=== PATIENT | male | born 1970 | race Caucasian/White ===

== ENCOUNTER 2016-07-28 10:59 | Emergency (ER) | payer BC ==
--- NOTE | 2016-07-28 12:51 | ED NURSING NOTES ---
Clinical Report - Nurses [facility] [place] [address] 07/28/2016 11:03 Patient: TRENT ABEL TRIAGE Triage time 11:33. Acuity: LEVEL 4. Chief Complaint: SINUS CONGESTION and SINUS DRAINAGE (Swollen Uvula). 11:41 07/28/16. SEPSIS SCREEN: Sepsis Screen. Negative (no infection suspected/documented). IRLANDA COMA SCORE: Irlanda Coma Scale: 15- eyes open spontaneously (4); best verbal response- oriented x 4 (5); best motor response- obeys commands (6). --11:41 Thuan Martin R.N. 11:34 07/28/16. BP: 130/94. HR: 92. RR: 16. O2 saturation: 97% on room air. Temp: 98.6 F (oral). Pain level now: 5/10. --11:41 Thuan Martin R.N. Weight: 104.3 kg stated. Height/Length: 71 inches Per Patient. BMI: 32.1. --11:37 Thuan Martin R.N. Medications Naproxen Oral, as needed. --11:36 Thuan Martin R.N. Medication/allergy information source: the patient and patient's spouse. --11:41 Thuan Martin R.N. Allergies Penicillins. --11:36 Thuan Martin R.N. History Arrived by private vehicle. Historian: patient and family. This started last night. ( The same thing happened in 2012 and he was seen here.). 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 SOCIAL HX: Never smoker. Occasional alcohol use. No drug use. ABUSE ASSESSMENT: No report of abuse. --11:41 Thuan Martin R.N. PROBLEMS: Viral Disease. Angioedema. Immunizations. --11:36 Thuan Martin R.N. ADDITIONAL SURGERIES: Back Surgery. --11:36 Thuan Martin R.N. Interventions ID band on patient. To treatment room. --11:41 Thuan Martin R.N. PHYSICAL ASSESSMENT 11:46 07/28/16. Ambulatory to room. GENERAL / NEURO / PSYCH: Alert. Appears in no acute distress. HEENT: No facial asymmetry noted. Pupils equal, round and reactive to light. EOM intact. ( Significantly swollen uvula, drainage noted.). RESPIRATORY: Respirations not labored. CVS: Capillary refill less than 2 seconds. SKIN: Skin is warm and dry. --11:46 Thuan Martin R.N. NURSING PROGRESS NOTES 11:46 07/28/16. Patient gowned. Reassurance given. Two patient identifiers checked. Call light placed in reach. Bed placed in lowest position. Brakes of bed on. Patient ready for evaluation- chart flagged. --11:46 Thuan Martin R.N. 12:57 07/28/2016 Decadron (Dexamethasone Sodium Phosphate) IM 8 mg given. Given in the right deltoid. Allergies verified and confirmed 5 rights. --13: Thuan Martin R.N. 12:57 07/28/2016 Benadryl (DiphenhydrAMINE HCl) IM 50 mg given. Given in the left deltoid. Allergies verified, confirmed 5 rights and sedative warning given to the patient. --13: Thuan Martin R.N. 12:58 07/28/16. BP: 136/90. HR: 76. RR: 16. O2 saturation: 95% on room air. Pain level now: 11/28. --13:07 Thuan Martin R.N. DISPOSITION / DISCHARGE 13:10 07/28/16. BP: 128/88. HR: 84 (regular). RR: 16. O2 saturation: 97%. Temp: 98.7 F. Pain level now: 09/28. --21:31 Lauro Reed R.N. Departure time: 1315. --21:31 Lauro Reed R.N. 13:15. Condition at departure: improved. No learning barriers present. Discharge instructions provided and reviewed with the patient. Reviewed medication(s) (prescription given to pt). Reviewed referral to family practice for followup. Patient verbalized understanding. Written instructions provided in Thai. The patient was discharged by the physician. He was discharged home. He left the Emergency Department ambulatory and via private vehicle. Patient driving. --21:35 Lauro Reed R.N. Locked/Released at 07/28/2016 21:35 by Lauro Reed R.N.
--- NOTE | 2016-07-28 12:51 | ED NURSING NOTES ---
Clinical Report - Nurses [facility] [place] [address] 07/28/2016 11:03 Patient: TRENT ABEL TRIAGE Triage time 11:33. Acuity: LEVEL 4. Chief Complaint: SINUS CONGESTION and SINUS DRAINAGE (Swollen Uvula). 11:41 07/28/16. SEPSIS SCREEN: Sepsis Screen. Negative (no infection suspected/documented). IRLANDA COMA SCORE: Irlanda Coma Scale: 15- eyes open spontaneously (4); best verbal response- oriented x 4 (5); best motor response- obeys commands (6). --11:41 Thuan Martin R.N. 11:34 07/28/16. BP: 130/94. HR: 92. RR: 16. O2 saturation: 97% on room air. Temp: 98.6 F (oral). Pain level now: 5/10. --11:41 Thuan Martin R.N. Weight: 104.3 kg stated. Height/Length: 71 inches Per Patient. BMI: 32.1. --11:37 Thuan Martin R.N. Medications Naproxen Oral, as needed. --11:36 Thuan Martin R.N. Medication/allergy information source: the patient and patient's spouse. --11:41 Thuan Martin R.N. Allergies Penicillins. --11:36 Thuan Martin R.N. History Arrived by private vehicle. Historian: patient and family. This started last night. ( The same thing happened in 2012 and he was seen here.). 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 SOCIAL HX: Never smoker. Occasional alcohol use. No drug use. ABUSE ASSESSMENT: No report of abuse. --11:41 Thuan Martin R.N. PROBLEMS: Viral Disease. Angioedema. Immunizations. --11:36 Thuan Martin R.N. ADDITIONAL SURGERIES: Back Surgery. --11:36 Thuan Martin R.N. Interventions ID band on patient. To treatment room. --11:41 Thuan Martin R.N. PHYSICAL ASSESSMENT 11:46 07/28/16. Ambulatory to room. GENERAL / NEURO / PSYCH: Alert. Appears in no acute distress. HEENT: No facial asymmetry noted. Pupils equal, round and reactive to light. EOM intact. ( Significantly swollen uvula, drainage noted.). RESPIRATORY: Respirations not labored. CVS: Capillary refill less than 2 seconds. SKIN: Skin is warm and dry. --11:46 Thuan Martin R.N. NURSING PROGRESS NOTES 11:46 07/28/16. Patient gowned. Reassurance given. Two patient identifiers checked. Call light placed in reach. Bed placed in lowest position. Brakes of bed on. Patient ready for evaluation- chart flagged. --11:46 Thuan Martin R.N. 12:57 07/28/2016 Decadron (Dexamethasone Sodium Phosphate) IM 8 mg given. Given in the right deltoid. Allergies verified and confirmed 5 rights. --13: Thuan Martin R.N. 12:57 07/28/2016 Benadryl (DiphenhydrAMINE HCl) IM 50 mg given. Given in the left deltoid. Allergies verified, confirmed 5 rights and sedative warning given to the patient. --13: Thuan Martin R.N. 12:58 07/28/16. BP: 136/90. HR: 76. RR: 16. O2 saturation: 95% on room air. Pain level now: 11/28. --13:07 Thuan Martin R.N. DISPOSITION / DISCHARGE 13:10 07/28/16. BP: 128/88. HR: 84 (regular). RR: 16. O2 saturation: 97%. Temp: 98.7 F. Pain level now: 09/28. --21:31 Lauro Reed R.N. Departure time: 1315. --21:31 Lauro Reed R.N. 13:15. Condition at departure: improved. No learning barriers present. Discharge instructions provided and reviewed with the patient. Reviewed medication(s) (prescription given to pt). Reviewed referral to family practice for followup. Patient verbalized understanding. Written instructions provided in Vietnamese. The patient was discharged by the physician. He was discharged home. He left the Emergency Department ambulatory and via private vehicle. Patient driving. --21:35 Lauro Reed R.N. Locked/Released at 07/28/2016 21:35 by Lauro Reed R.N.
--- NOTE | 2016-07-28 12:51 | ED CLINICAL REPORT ---
Clinical Report - Physicians/Mid Levels [facility] [address] [place] [address] 07/28/2016 11:03 Patient: TRENT ABEL Time Seen: 1220; initial patient contact, initial documentation, patient care assumed. Arrived- By private vehicle. Historian- patient and spouse. HISTORY OF PRESENT ILLNESS Chief Complaint: throat swelling. This started last night and is still present. Pain described as mild. The patient has had a sore throat, nasal congestion and a nasal discharge. No mouth sores or ear pain. (c/o sinus drainage). Similar symptoms previously: Once, milder. Recent medical care: Not recently seen/assessed. REVIEW OF SYSTEMS No fever, cough or difficulty breathing. All systems otherwise negative, except as recorded above. PAST HISTORY See nurses notes. PROBLEMS: Viral Disease. Angioedema. Immunizations. --11:36 Thuan Martin R.N. ADDITIONAL SURGERIES: Back Surgery. --11:36 Thuan Martin R.N. SOCIAL HISTORY Never smoker. Occasional alcohol use. No drug use. No recent travel. Is a local resident. FAMILY HISTORY Negative. ADDITIONAL NOTES The nursing notes have been reviewed with agreement regarding the chief complaint, HPI, ROS, PMH and patient medications and allergies. PHYSICAL EXAM Vital Signs: 07/28/2016 11:34 BP: 130/94. HR: 92. RR: 16. O2 saturation: 97%. Temp: 98.6 F. Pain level now: 5/10. Have been reviewed as normal and appear to be correct. Appearance: Alert. No acute distress. Head: Normal external inspection. Eyes: Pupils equal, round and reactive to light. Conjunctivae and eyelids normal. ENT: Ears normal. Nose normal. Pharynx abnormal. Lips normal. Gums normal. No trismus present. Uvula midline. (uvula swelling). Neck: Normal inspection. Trachea midline. No adenopathy. Thyroid normal. Neck supple. CVS: Normal heart rate and rhythm. Heart sounds normal. Pulses normal. Respiratory: No respiratory distress. Breath sounds normal. Chest nontender. Skin: Normal skin color. No rash. Normal skin turgor. Extremities: Extremities exhibit normal ROM. Extremities nontender. Neuro: Oriented X 3. No motor deficit. No sensory deficit. PROGRESS AND PROCEDURES Patient and spouse counseled in person regarding the patient's stable condition and diagnosis. 12:51. Differential Diagnosis: Other possible considerations: uvulitis, sinusitis, allergic reaction, flu, viral illness, pharyngitis. Above considerations are based on history and physical exam. Differential diagnosis was discussed with patient and patient's spouse. Disposition: Discharged home in good and improved condition (12:51). Condition: good and stable. CLINICAL IMPRESSION Acute sinusitis (Uvulitis). INSTRUCTIONS Drink plenty of fluids for the next 24 hours until better. (over the saline sinus wash). Warnings: GENERAL WARNINGS: Return or contact your physician immediately if your condition worsens or changes unexpectedly, if not improving as expected, or if other problems arise. Specifically return if problem worsens. Prescription Medications: Prednisone 20 mg: take 3 orally every day for 5 days. Dispense fifteen (15). No refills. Zithromax 500 mg tablets: take 1 orally today, every day. Total course 7 days. No refills. Vashti 180 mg tablets: take 1 orally daily for 10 days. Dispense ten (10). No refills. Follow-up: Follow up with your doctor tomorrow in about three days even if well. Call for an appointment. Summary of care provided to patient. Understanding of the discharge instructions verbalized by patient. (Electronically signed by Shani Sommer A.R.N.P. 07/28/2016 13:53)
--- NOTE | 2016-07-28 12:52 | ED ORDER SUMMARY ---
..... Patient: TRENT ABEL OrderSheet [facility] VisitID: [id number] [address] [place] [address] 46y, M Registration Date/Time: 07/28/2016 ORDER SHEET Weight: 104.3 kg (stated) Allergies: Penicillins GENERAL ORDERS: MEDICATION ORDERS: Decadron IM 8 mg (NOW) (12:32 07/28/2016 HBivens A.R.N.P.) (Ack 12:51 JSimbeck R.N.) (13:01 JSimbeck R.N.) Benadryl IM 50 mg (NOW) (12:49 07/28/2016 HBivens A.R.N.P.) (Ack 12:51 JSimbeck R.N.) (13:01 JSimbeck R.N.) IV FLUIDS: ORDER SHEET NOTES: [Electronically signed by Shani SommerR.N.P. (13:53 07/28/2016)] [Electronically signed by Lauro Reed R.N. (21:35 07/28/2016)] [Electronically locked/signed by Lauro Reed R.N. (21:35 07/28/2016)]
--- NOTE | 2016-07-28 12:52 | ED ORDER SUMMARY ---
..... Patient: TRENT ABEL OrderSheet [facility] VisitID: [id number] [address] [place] [address] 46y, M Registration Date/Time: 07/28/2016 ORDER SHEET Weight: 104.3 kg (stated) Allergies: Penicillins GENERAL ORDERS: MEDICATION ORDERS: Decadron IM 8 mg (NOW) (12:32 07/28/2016 HBivens A.R.N.P.) (Ack 12:51 JSimbeck R.N.) (13:01 JSimbeck R.N.) Benadryl IM 50 mg (NOW) (12:49 07/28/2016 HBivens A.R.N.P.) (Ack 12:51 JSimbeck R.N.) (13:01 JSimbeck R.N.) IV FLUIDS: ORDER SHEET NOTES: [Electronically signed by Shani SommerR.N.P. (13:53 07/28/2016)] [Electronically signed by Lauro Reed R.N. (21:35 07/28/2016)] [Electronically locked/signed by Lauro Reed R.N. (21:35 07/28/2016)]
--- NOTE | 2016-07-28 21:35 | ED MAR SUMMARY ---
..... Medication Administration Record [facility] [address] [place] [address] Patient: TRENT ABEL Visit ID: [id number] 46y, M Weight: 104.3 kg Height/Length: 71 in BMI: 32.1 ALLERGIES: Penicillins Given 12:57 07/28/2016 Thuan Martin R.N. Medication Administered: DECADRON [IM] (DEXAMETHASONE SODIUM PHOSPHATE), Dose: 8 mg IM. Medication Ordered: Decadron IM 8 mg (NOW). Given 12:57 07/28/2016 Thuan Martin R.N. Medication Administered: BENADRYL [IM] (DIPHENHYDRAMINE HCL), Dose: 50 mg IM. Medication Ordered: Benadryl IM 50 mg (NOW).
--- NOTE | 2016-07-28 21:35 | ED MAR SUMMARY ---
..... Medication Administration Record [facility] [address] [place] [address] Patient: TRENT ABEL Visit ID: [id number] 46y, M Weight: 104.3 kg Height/Length: 71 in BMI: 32.1 ALLERGIES: Penicillins Given 12:57 07/28/2016 Thuan Martin R.N. Medication Administered: DECADRON [IM] (DEXAMETHASONE SODIUM PHOSPHATE), Dose: 8 mg IM. Medication Ordered: Decadron IM 8 mg (NOW). Given 12:57 07/28/2016 Thuan Martin R.N. Medication Administered: BENADRYL [IM] (DIPHENHYDRAMINE HCL), Dose: 50 mg IM. Medication Ordered: Benadryl IM 50 mg (NOW).
--- NOTE | 2016-07-28 21:35 | ED MED RECONCILIATION SUMMARY ---
Patient: TRENT ABEL Medication Reconciliation Report [facility] VisitID: [id number] [address] [place] [address] 46y, M Registration Date/Time: 07/28/2016 Weight: 104.3 kg Height/Length: 71 in. BMI: 32.1 ALLERGIES: Penicillins The patient's Home Medications are listed below: THE FOLLOWING MEDICATIONS NEED TO BE RECONCILED: Naproxen Oral The source(s) of the original Home Medication information: patient patient's spouse The following Medications were given to the patient in the Emergency Department: Decadron [IM] IM 8 mg, administered: 07/28/2016 12:57:00 PM Benadryl [IM] IM 50 mg, administered: 07/28/2016 12:57:00 PM The following Medications were prescribed to the patient: Prednisone 20 mg: take 3 orally every day for 5 days. Dispense fifteen (15). No refills. -- Shani Sommer A.R.NFreddyP. Zithromax 500 mg tablets: take 1 orally today, every day. Total course 7 days. No refills. -- Shani Sommer A.R.NFreddyP. Vashti 180 mg tablets: take 1 orally daily for 10 days. Dispense ten (10). No refills. -- Shani Sommer A.R.NFreddyP.
--- NOTE | 2016-07-28 21:35 | ED DISCHARGE INSTRUCTIONS ---
Patient: TRENT ABEL General Instructions [facility] VisitID: [id number] [address] [place] [address] 46y, M Registration Date/Time: 07/28/2016 Acute sinusitis (Uvulitis). INSTRUCTIONS Drink plenty of fluids for the next 24 hours until better. (over the saline sinus wash). Warnings: GENERAL WARNINGS: Return or contact your physician immediately if your condition worsens or changes unexpectedly, if not improving as expected, or if other problems arise. Specifically return if problem worsens. Prescription Medications: Prednisone 20 mg: take 3 orally every day for 5 days. Dispense fifteen (15). No refills. Zithromax 500 mg tablets: take 1 orally today, every day. Total course 7 days. No refills. Vashti 180 mg tablets: take 1 orally daily for 10 days. Dispense ten (10). No refills. Follow-up: Follow up with your doctor tomorrow in about three days even if well. Call for an appointment. Summary of care provided to patient. Understanding of the discharge instructions verbalized by patient. ADDITIONAL INFORMATION Sinusitis [Abx Tx] The sinuses are air-filled spaces within the bones of the face. They connect to the inside of the nose. Sinusitis is an inflammation of the tissue lining the sinus cavity. Sinus inflammation can occur during a cold or hay-fever (allergies to pollens and other particles in the air) and cause symptoms of sinus congestion and fullness. A sinus infection causes fever, headache and facial pain. There is usually green or yellow drainage from the nose or into the back of the throat (post-nasal drip). Antibiotics are prescribed to treat this condition. Home Care: Drink plenty of water, hot tea, and other liquids to stay well hydrated. This thins the mucus and promotes sinus drainage. Apply heat to the painful areas of the face. Use a towel soaked in hot water. Or, die sinking machine operator the shower and direct the hot spray onto your face. This is a good way to inhale warm water vapor and get heat on your face at the same time. (Cover your mouth and nose with your hands so you can still breathe as you do this.) Use a vaporizer with products such as [employer] VapoRub (contains menthol) at night. Suck on peppermint, menthol or eucalyptus hard candies during the day. An expectorant containing guaifenesin (such as Robitussin), helps to thin the mucus and promote drainage from the sinuses. Yxmz-nir-dipiodg decongestants may be used unless a similar medicine was prescribed. Nasal sprays work the fastest. Use one that contains phenylephrine (Juan Luis-synephrine, Sinex and others) or oxymetazoline (Afrin). First blow the nose gently to remove mucus, then apply the drops. Do not use these medicines more often than directed on the label or for more than three days or symptoms may worsen. You may also use tablets containing pseudoephedrine (Sudafed). Many sinus remedies combine ingredients, which may increase side effects. Read the labels or ask the pharmacist for help. NOTE: Persons with high blood pressure should not use decongestants. They can raise blood pressure. Antihistamines are useful if allergies are a cause of your sinusitis. The mildest one is chlorpheniramine (available without a prescription). The dose for adults is 8-12mg three times a day. [NOTE: Do not use chlorpheniramine if you have glaucoma or if you are a man with trouble urinating due to an enlarged prostate.] Claritin (loratidine) is an antihistamine that causes less drowsiness and is a good alternative for daytime use. Do not use nasal rinses or irrigation during an acute sinus infection, unless advised by your doctor. Rinsing may spread the infection to other sinuses. You may use acetaminophen (Tylenol) or ibuprofen (Motrin, Advil) to control pain, unless another pain medicine was prescribed. [ NOTE: If you have chronic liver or kidney disease or ever had a stomach ulcer, talk with your doctor before using these medicines.] (Aspirin should never be used in anyone under 18 years of age who is ill with a fever. It may cause severe liver damage.) Finish the full course, even if you are feeling better after a few days. Follow Up with your doctor or this facility in one week or as instructed by our staff if not improving. Get Prompt Medical Attention if any of the following occur: Facial pain or headache becomes more severe Stiff neck Unusual drowsiness or confusion, or not acting like your normal self Swelling of the forehead or eyelids Vision problems including blurred or double vision Fever of 100.4F (38C) or higher, or as directed by your healthcare provider Seizure Prednisone Oral tablet What is this medicine? PREDNISONE (PRED ni sone) is a corticosteroid. It is commonly used to treat inflammation of the skin, joints, lungs, and other organs. Common conditions treated include asthma, allergies, and arthritis. It is also used for other conditions, such as blood disorders and diseases of the adrenal glands. How should I use this medicine? Take this medicine by mouth with a glass of water. Follow the directions on the prescription label. Take this medicine with food. If you are taking this medicine once a day, take it in the morning. Do not take more medicine than you are told to take. Do not suddenly stop taking your medicine because you may develop a severe reaction. Your doctor will tell you how much medicine to take. If your doctor wants you to stop the medicine, the dose may be slowly lowered over time to avoid any side effects. Talk to your senior benefits manager regarding the use of this medicine in children. Special care may be needed. What side effects may I notice from receiving this medicine? Side effects that you should report to your doctor or health health care specialist as soon as possible: allergic reactions like skin rash, itching or hives, swelling of the face, lips, or tongue changes in emotions or moods changes in vision depressed mood eye pain fever or chills, cough, sore throat, pain or difficulty passing urine increased thirst swelling of ankles, feet Side effects that usually do not require medical attention (report to your doctor or health health care specialist if they continue or are bothersome): confusion, excitement, restlessness headache nausea, vomiting skin problems, acne, thin and shiny skin trouble sleeping weight gain What may interact with this medicine? Do not take this medicine with any of the following medications: metyrapone mifepristone This medicine may also interact with the following medications: aminoglutethimide amphotericin B aspirin and aspirin-like medicines barbiturates certain medicines for diabetes, like glipizide or glyburide cholestyramine cholinesterase inhibitors cyclosporine digoxin diuretics ephedrine female hormones, like estrogens and control pills isoniazid ketoconazole NSAIDS, medicines for pain and inflammation, like ibuprofen or naproxen phenytoin rifampin toxoids vaccines warfarin What if I miss a dose? If you miss a dose, take it as soon as you can. If it is almost time for your next dose, talk to your doctor or health health care specialist. You may need to miss a dose or take an extra dose. Do not take double or extra doses without advice. Where should I keep my medicine? Keep out of the reach of children. Store at room temperature between 15 and 30 degrees C (59 and 86 degrees F). Protect from light. Keep container tightly closed. Throw away any unused medicine after the expiration date. What should I tell my health care provider before I take this medicine? They need to know if you have any of these conditions: Proctor's syndrome diabetes glaucoma heart disease high blood pressure infection (especially a virus infection such as chickenpox, cold sores, or herpes) kidney disease liver disease mental illness myasthenia gravis osteoporosis seizures stomach or intestine problems thyroid disease an unusual or allergic reaction to lactose, prednisone, other medicines, foods, dyes, or preservatives or trying to get breast-feeding What should I watch for while using this medicine? Visit your doctor or health health care specialist for regular checks on your progress. If you are taking this medicine over a prolonged period, carry an identification card with your name and address, the type and dose of your medicine, and your doctor's name and address. This medicine may increase your risk of getting an infection. Tell your doctor or health health care specialist if you are around anyone with measles or chickenpox, or if you develop sores or blisters that do not heal properly. If you are going to have surgery, tell your doctor or health health care specialist that you have taken this medicine within the last twelve months. Ask your doctor or health health care specialist about your diet. You may need to lower the amount of salt you eat. This medicine may affect blood sugar levels. If you have diabetes, check with your doctor or health health care specialist before you change your diet or the dose of your diabetic medicine. Azithromycin Oral tablet What is this medicine? AZITHROMYCIN (az ith hunter MYE sin) is a macrolide antibiotic. It is used to treat or prevent certain kinds of bacterial infections. It will not work for colds, flu, or other viral infections. How should I use this medicine? Take this medicine by mouth with a full glass of water. Follow the directions on the prescription label. The tablets can be taken with food or on an empty stomach. If the medicine upsets your stomach, take it with food. Take your medicine at regular intervals. Do not take your medicine more often than directed. Take all of your medicine as directed even if you think your are better. Do not skip doses or stop your medicine early. Talk to your senior benefits manager regarding the use of this medicine in children. Special care may be needed. What side effects may I notice from receiving this medicine? Side effects that you should report to your doctor or health health care specialist as soon as possible: allergic reactions like skin rash, itching or hives, swelling of the face, lips, or tongue confusion, nightmares or hallucinations dark urine difficulty breathing hearing loss irregular heartbeat or chest pain pain or difficulty passing urine redness, blistering, peeling or loosening of the skin, including inside the mouth white patches or sores in the mouth yellowing of the eyes or skin Side effects that usually do not require medical attention (report to your doctor or health health care specialist if they continue or are bothersome): diarrhea dizziness, drowsiness headache stomach upset or vomiting tooth discoloration vaginal irritation What may interact with this medicine? Do not take this medicine with any of the following medications: lincomycin This medicine may also interact with the following medications: amiodarone antacids cyclosporine digoxin magnesium nelfinavir phenytoin warfarin What if I miss a dose? If you miss a dose, take it as soon as you can. If it is almost time for your next dose, take only that dose. Do not take double or extra doses. Where should I keep my medicine? Keep out of the reach of children. Store at room temperature between 15 and 30 degrees C (59 and 86 degrees F). Throw away any unused medicine after the expiration date. What should I tell my health care provider before I take this medicine? They need to know if you have any of these conditions: kidney disease liver disease irregular heartbeat or heart disease an unusual or allergic reaction to azithromycin, erythromycin, other macrolide antibiotics, foods, dyes, or preservatives or trying to get breast-feeding What should I watch for while using this medicine? Tell your doctor or health health care specialist if your symptoms do not improve. Do not treat diarrhea with over the counter products. Contact your doctor if you have diarrhea that lasts more than 2 days or if it is severe and watery. This medicine can make you more sensitive to the sun. Keep out of the sun. If you cannot avoid being in the sun, wear protective clothing and use sunscreen. Do not use sun lamps or tanning beds/booths. Fexofenadine Hydrochloride Oral tablet What is this medicine? FEXOFENADINE (fex oh CARLOS cordero) is an antihistamine. This medicine is used to treat or prevent symptoms of allergies. It is also used to help reduce itchy skin rash and hives. How should I use this medicine? Take this medicine by mouth with a full glass of water. Follow the directions on the prescription label. You may take this medicine with food or on an empty stomach. Take your medicine at regular intervals. Do not take it more often than directed. You may need to take this medicine for several days before your symptoms improve. Talk to your senior benefits manager regarding the use of this medicine in children. While this drug may be prescribed for children as young as 6 years old for selected conditions, precautions do apply. What side effects may I notice from receiving this medicine? Side effects that you should report to your doctor or health health care specialist as soon as possible: allergic reactions like skin rash, itching or hives, swelling of the face, lips, or tongue breathing problems chest pain fast heartbeat infection or fever Side effects that usually do not require medical attention (report to your doctor or health health care specialist if they continue or are bothersome): cough drowsiness dry or irritated nose, mouth, or throat headache menstrual changes pain stomach upset, nausea What may interact with this medicine? antacids erythromycin grapefruit, apple, or orange juice ketoconazole magnesium-containing products What if I miss a dose? If you miss a dose, take it as soon as you can. If it is almost time for your next dose, take only that dose. Do not take double or extra doses. Where should I keep my medicine? Keep out of the reach of children. Store at room temperature between 20 and 25 degrees C (68 and 77degrees F). Protect from moisture. Throw away any unused medicine after the expiration date. What should I tell my health care provider before I take this medicine? They need to know if you have any of these conditions: kidney disease an unusual or allergic reaction to fexofenadine, terfenadine, other medicines, foods, dyes, or preservatives or trying to get breast-feeding What should I watch for while using this medicine? Visit your doctor or health health care specialist for regular checks on your health. Tell your doctor or healthcare professional if your symptoms do not start to get better or if they get worse. You have been given the following additional information: Sinusitis, Abx Tx Prednisone Oral tablet Azithromycin Oral tablet Fexofenadine Hydrochloride Oral tablet (Electronically signed by Shani Sommer A.R.N.P. 07/28/2016 13:53)
--- NOTE | 2016-07-28 21:35 | ED DISCHARGE INSTRUCTIONS ---
Patient: TRENT ABEL General Instructions [facility] VisitID: [id number] [place] [address] 46y, M Registration Date/Time: 07/28/2016 Acute sinusitis (Uvulitis). INSTRUCTIONS Drink plenty of fluids for the next 24 hours until better. (over the saline sinus wash). Warnings: GENERAL WARNINGS: Return or contact your physician immediately if your condition worsens or changes unexpectedly, if not improving as expected, or if other problems arise. Specifically return if problem worsens. Prescription Medications: Prednisone 20 mg: take 3 orally every day for 5 days. Dispense fifteen (15). No refills. Zithromax 500 mg tablets: take 1 orally today, every day. Total course 7 days. No refills. Vashti 180 mg tablets: take 1 orally daily for 10 days. Dispense ten (10). No refills. Follow-up: Follow up with your doctor tomorrow in about three days even if well. Call for an appointment. Summary of care provided to patient. Understanding of the discharge instructions verbalized by patient. ADDITIONAL INFORMATION Sinusitis [Abx Tx] The sinuses are air-filled spaces within the bones of the face. They connect to the inside of the nose. Sinusitis is an inflammation of the tissue lining the sinus cavity. Sinus inflammation can occur during a cold or hay-fever (allergies to pollens and other particles in the air) and cause symptoms of sinus congestion and fullness. A sinus infection causes fever, headache and facial pain. There is usually green or yellow drainage from the nose or into the back of the throat (post-nasal drip). Antibiotics are prescribed to treat this condition. Home Care: Drink plenty of water, hot tea, and other liquids to stay well hydrated. This thins the mucus and promotes sinus drainage. Apply heat to the painful areas of the face. Use a towel soaked in hot water. Or, veterans' coordinator the shower and direct the hot spray onto your face. This is a good way to inhale warm water vapor and get heat on your face at the same time. (Cover your mouth and nose with your hands so you can still breathe as you do this.) Use a vaporizer with products such as [employer] VapoRub (contains menthol) at night. Suck on peppermint, menthol or eucalyptus hard candies during the day. An expectorant containing guaifenesin (such as Robitussin), helps to thin the mucus and promote drainage from the sinuses. Gxdj-cau-cydblty decongestants may be used unless a similar medicine was prescribed. Nasal sprays work the fastest. Use one that contains phenylephrine (Juan Luis-synephrine, Sinex and others) or oxymetazoline (Afrin). First blow the nose gently to remove mucus, then apply the drops. Do not use these medicines more often than directed on the label or for more than three days or symptoms may worsen. You may also use tablets containing pseudoephedrine (Sudafed). Many sinus remedies combine ingredients, which may increase side effects. Read the labels or ask the pharmacist for help. NOTE: Persons with high blood pressure should not use decongestants. They can raise blood pressure. Antihistamines are useful if allergies are a cause of your sinusitis. The mildest one is chlorpheniramine (available without a prescription). The dose for adults is 8-12mg three times a day. [NOTE: Do not use chlorpheniramine if you have glaucoma or if you are a man with trouble urinating due to an enlarged prostate.] Claritin (loratidine) is an antihistamine that causes less drowsiness and is a good alternative for daytime use. Do not use nasal rinses or irrigation during an acute sinus infection, unless advised by your doctor. Rinsing may spread the infection to other sinuses. You may use acetaminophen (Tylenol) or ibuprofen (Motrin, Advil) to control pain, unless another pain medicine was prescribed. [ NOTE: If you have chronic liver or kidney disease or ever had a stomach ulcer, talk with your doctor before using these medicines.] (Aspirin should never be used in anyone under 18 years of age who is ill with a fever. It may cause severe liver damage.) Finish the full course, even if you are feeling better after a few days. Follow Up with your doctor or this facility in one week or as instructed by our staff if not improving. Get Prompt Medical Attention if any of the following occur: Facial pain or headache becomes more severe Stiff neck Unusual drowsiness or confusion, or not acting like your normal self Swelling of the forehead or eyelids Vision problems including blurred or double vision Fever of 100.4F (38C) or higher, or as directed by your healthcare provider Seizure Prednisone Oral tablet What is this medicine? PREDNISONE (PRED ni sone) is a corticosteroid. It is commonly used to treat inflammation of the skin, joints, lungs, and other organs. Common conditions treated include asthma, allergies, and arthritis. It is also used for other conditions, such as blood disorders and diseases of the adrenal glands. How should I use this medicine? Take this medicine by mouth with a glass of water. Follow the directions on the prescription label. Take this medicine with food. If you are taking this medicine once a day, take it in the morning. Do not take more medicine than you are told to take. Do not suddenly stop taking your medicine because you may develop a severe reaction. Your doctor will tell you how much medicine to take. If your doctor wants you to stop the medicine, the dose may be slowly lowered over time to avoid any side effects. Talk to your digital hardware design engineer regarding the use of this medicine in children. Special care may be needed. What side effects may I notice from receiving this medicine? Side effects that you should report to your doctor or health property caretaker as soon as possible: allergic reactions like skin rash, itching or hives, swelling of the face, lips, or tongue changes in emotions or moods changes in vision depressed mood eye pain fever or chills, cough, sore throat, pain or difficulty passing urine increased thirst swelling of ankles, feet Side effects that usually do not require medical attention (report to your doctor or health property caretaker if they continue or are bothersome): confusion, excitement, restlessness headache nausea, vomiting skin problems, acne, thin and shiny skin trouble sleeping weight gain What may interact with this medicine? Do not take this medicine with any of the following medications: metyrapone mifepristone This medicine may also interact with the following medications: aminoglutethimide amphotericin B aspirin and aspirin-like medicines barbiturates certain medicines for diabetes, like glipizide or glyburide cholestyramine cholinesterase inhibitors cyclosporine digoxin diuretics ephedrine female hormones, like estrogens and control pills isoniazid ketoconazole NSAIDS, medicines for pain and inflammation, like ibuprofen or naproxen phenytoin rifampin toxoids vaccines warfarin What if I miss a dose? If you miss a dose, take it as soon as you can. If it is almost time for your next dose, talk to your doctor or health property caretaker. You may need to miss a dose or take an extra dose. Do not take double or extra doses without advice. Where should I keep my medicine? Keep out of the reach of children. Store at room temperature between 15 and 30 degrees C (59 and 86 degrees F). Protect from light. Keep container tightly closed. Throw away any unused medicine after the expiration date. What should I tell my health care provider before I take this medicine? They need to know if you have any of these conditions: [place]'s syndrome diabetes glaucoma heart disease high blood pressure infection (especially a virus infection such as chickenpox, cold sores, or herpes) kidney disease liver disease mental illness myasthenia gravis osteoporosis seizures stomach or intestine problems thyroid disease an unusual or allergic reaction to lactose, prednisone, other medicines, foods, dyes, or preservatives or trying to get breast-feeding What should I watch for while using this medicine? Visit your doctor or health property caretaker for regular checks on your progress. If you are taking this medicine over a prolonged period, carry an identification card with your name and address, the type and dose of your medicine, and your doctor's name and address. This medicine may increase your risk of getting an infection. Tell your doctor or health property caretaker if you are around anyone with measles or chickenpox, or if you develop sores or blisters that do not heal properly. If you are going to have surgery, tell your doctor or health property caretaker that you have taken this medicine within the last twelve months. Ask your doctor or health property caretaker about your diet. You may need to lower the amount of salt you eat. This medicine may affect blood sugar levels. If you have diabetes, check with your doctor or health property caretaker before you change your diet or the dose of your diabetic medicine. Azithromycin Oral tablet What is this medicine? AZITHROMYCIN (az ith hunter MYE sin) is a macrolide antibiotic. It is used to treat or prevent certain kinds of bacterial infections. It will not work for colds, flu, or other viral infections. How should I use this medicine? Take this medicine by mouth with a full glass of water. Follow the directions on the prescription label. The tablets can be taken with food or on an empty stomach. If the medicine upsets your stomach, take it with food. Take your medicine at regular intervals. Do not take your medicine more often than directed. Take all of your medicine as directed even if you think your are better. Do not skip doses or stop your medicine early. Talk to your digital hardware design engineer regarding the use of this medicine in children. Special care may be needed. What side effects may I notice from receiving this medicine? Side effects that you should report to your doctor or health property caretaker as soon as possible: allergic reactions like skin rash, itching or hives, swelling of the face, lips, or tongue confusion, nightmares or hallucinations dark urine difficulty breathing hearing loss irregular heartbeat or chest pain pain or difficulty passing urine redness, blistering, peeling or loosening of the skin, including inside the mouth white patches or sores in the mouth yellowing of the eyes or skin Side effects that usually do not require medical attention (report to your doctor or health property caretaker if they continue or are bothersome): diarrhea dizziness, drowsiness headache stomach upset or vomiting tooth discoloration vaginal irritation What may interact with this medicine? Do not take this medicine with any of the following medications: lincomycin This medicine may also interact with the following medications: amiodarone antacids cyclosporine digoxin magnesium nelfinavir phenytoin warfarin What if I miss a dose? If you miss a dose, take it as soon as you can. If it is almost time for your next dose, take only that dose. Do not take double or extra doses. Where should I keep my medicine? Keep out of the reach of children. Store at room temperature between 15 and 30 degrees C (59 and 86 degrees F). Throw away any unused medicine after the expiration date. What should I tell my health care provider before I take this medicine? They need to know if you have any of these conditions: kidney disease liver disease irregular heartbeat or heart disease an unusual or allergic reaction to azithromycin, erythromycin, other macrolide antibiotics, foods, dyes, or preservatives or trying to get breast-feeding What should I watch for while using this medicine? Tell your doctor or health property caretaker if your symptoms do not improve. Do not treat diarrhea with over the counter products. Contact your doctor if you have diarrhea that lasts more than 2 days or if it is severe and watery. This medicine can make you more sensitive to the sun. Keep out of the sun. If you cannot avoid being in the sun, wear protective clothing and use sunscreen. Do not use sun lamps or tanning beds/booths. Fexofenadine Hydrochloride Oral tablet What is this medicine? FEXOFENADINE (fex oh CARLOS cordero) is an antihistamine. This medicine is used to treat or prevent symptoms of allergies. It is also used to help reduce itchy skin rash and hives. How should I use this medicine? Take this medicine by mouth with a full glass of water. Follow the directions on the prescription label. You may take this medicine with food or on an empty stomach. Take your medicine at regular intervals. Do not take it more often than directed. You may need to take this medicine for several days before your symptoms improve. Talk to your digital hardware design engineer regarding the use of this medicine in children. While this drug may be prescribed for children as young as 6 years old for selected conditions, precautions do apply. What side effects may I notice from receiving this medicine? Side effects that you should report to your doctor or health property caretaker as soon as possible: allergic reactions like skin rash, itching or hives, swelling of the face, lips, or tongue breathing problems chest pain fast heartbeat infection or fever Side effects that usually do not require medical attention (report to your doctor or health property caretaker if they continue or are bothersome): cough drowsiness dry or irritated nose, mouth, or throat headache menstrual changes pain stomach upset, nausea What may interact with this medicine? antacids erythromycin grapefruit, apple, or orange juice ketoconazole magnesium-containing products What if I miss a dose? If you miss a dose, take it as soon as you can. If it is almost time for your next dose, take only that dose. Do not take double or extra doses. Where should I keep my medicine? Keep out of the reach of children. Store at room temperature between 20 and 25 degrees C (68 and 77degrees F). Protect from moisture. Throw away any unused medicine after the expiration date. What should I tell my health care provider before I take this medicine? They need to know if you have any of these conditions: kidney disease an unusual or allergic reaction to fexofenadine, terfenadine, other medicines, foods, dyes, or preservatives or trying to get breast-feeding What should I watch for while using this medicine? Visit your doctor or health property caretaker for regular checks on your health. Tell your doctor or healthcare professional if your symptoms do not start to get better or if they get worse. You have been given the following additional information: Sinusitis, Abx Tx Prednisone Oral tablet Azithromycin Oral tablet Fexofenadine Hydrochloride Oral tablet (Electronically signed by Shani Sommer A.R.N.P. 07/28/2016 13:53)
--- NOTE | 2016-07-28 21:35 | ED MED RECONCILIATION SUMMARY ---
Patient: TRENT ABEL Medication Reconciliation Report [facility] VisitID: [id number] [address] [place] [address] 46y, M Registration Date/Time: 07/28/2016 Weight: 104.3 kg Height/Length: 71 in. BMI: 32.1 ALLERGIES: Penicillins The patient's Home Medications are listed below: THE FOLLOWING MEDICATIONS NEED TO BE RECONCILED: Naproxen Oral The source(s) of the original Home Medication information: patient patient's spouse The following Medications were given to the patient in the Emergency Department: Decadron [IM] IM 8 mg, administered: 07/28/2016 12:57:00 PM Benadryl [IM] IM 50 mg, administered: 07/28/2016 12:57:00 PM The following Medications were prescribed to the patient: Prednisone 20 mg: take 3 orally every day for 5 days. Dispense fifteen (15). No refills. -- Shani Sommer A.R.NFreddyP. Zithromax 500 mg tablets: take 1 orally today, every day. Total course 7 days. No refills. -- Shani Sommer A.R.NFreddyP. Vashti 180 mg tablets: take 1 orally daily for 10 days. Dispense ten (10). No refills. -- Shani Sommer A.R.NFreddyP.
== END 2016-07-28 13:15 | disposition home or self-care (01) ==
LOC: ED SRH 10:59
DX: J01.90 Acute sinusitis, unspecified (principal); K12.2 Cellulitis and abscess of mouth; Z88.0 Allergy status to penicillin

== ENCOUNTER 2016-09-13 17:23 | Outpatient (CLI) | payer BC ==
--- NOTE | 2016-09-13 18:45 | DIAGNOSTIC IMAGING REPORT ---
PROCEDURE: ABDOMEN/PELVIS WITH CONTRAST CLINICAL INDICATION: RLQ PAIN TECHNIQUE: 145 ml of Isovue 300 were injected intravenously and axial images were obtained of the abdomen and pelvis with sagittal and coronal reformations. COMPARISON: None. FINDINGS: ABDOMEN: Tiny hiatal hernia. Mild diffuse hypodensity throughout the liver. Clear lung bases. Normal sized heart. The gallbladder, adrenal glands, kidneys , pancreas and spleen are normal. The abdominal aorta is normal in its course and caliber. There are no suspicious calcifications, retroperitoneal adenopathy or masses. The stomach, upper bowel loops, and mesentery are normal. Intact anterior abdominal wall. The sigmoid colon is diffusely decompressed. There is mild to moderate wall thickening and inflammatory changes involving the midportion of the sigmoid colon. A few hyperdense impacted diverticula are seen. There is a trace amount of adjacent fascial thickening and fluid. No focal fluid collections. No extraluminal gas. PELVIS: The appendix and pelvic small bowel loops are normal. Normal amount of stool elsewhere in the colon. The prostate gland, seminal vesicles, urinary bladder, and pelvic vessels are normal. No adenopathy, free fluid, or pelvic mass. Abnormal flattening of the right femoral head, prominent superior femoral head neck junction, degenerative changes and joint space loss in the acetabulum, and chronic-appearing fragmentation of the superior acetabular rim. IMPRESSION: 1. Mild sigmoid diverticulitis without complication. 2. Mild hepatic steatosis. 3. 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 4. Discussed with Amparo Chairez. All CT scans at this facility use dose modulation, iterative reconstruction, and/or weight-based dosing when appropriate to reduce radiation dose to as low as reasonably achievable.
== END 2016-09-13 23:00 | disposition home or self-care (01) ==
LOC: CT SRH 17:23
DX: R10.31 Right lower quadrant pain (principal); K57.32 Diverticulitis of large intestine without perforation or abscess without bleeding; M16.11 Unilateral primary osteoarthritis, right hip
CPT/HCPCS: 90074; 90100; 95059

== ENCOUNTER → 2017-01-16 | Outpatient (CLI) | payer BC ==
--- NOTE | 2017-01-16 16:36 | DIAGNOSTIC IMAGING REPORT ---
PROCEDURE: XR FOOT 3 VIEWS - RIGHT INDICATION: HIGH IMPACT BLUNTFORCE TO DORSAL R FOOT TECHNIQUE: Three views of the right foot. COMPARISON: None. FINDINGS: Normal mineralization. No fractures. Degenerative joint space loss, flattening, and mild spurring at the first metatarsal-phalangeal joint. Normal osseous alignment. No suspicious soft-tissue calcification or radiodense foreign bodies. Moderate dorsal soft tissue swelling across the distal metatarsals. IMPRESSION: 1. Dorsal distal metatarsal soft tissue injury without underlying fracture. 2. Moderate degenerative change at the first metatarsal-phalangeal joint.
== END ==
LOC: XR SRH 16:08
DX: M79.9 Soft tissue disorder, unspecified (principal); M19.071 Primary osteoarthritis, right ankle and foot